=== PATIENT | female | born 1965 | race Hispanic/Latino ===

== ENCOUNTER 2025-07-20 02:15 | Observation (INO) | payer BC ==
[2025-07-20] VITALS (11 sets, daily range): BP systolic 115–139; BP diastolic 57–69; PULSE 52–80; RESP 15–18; TEMP 97.6–98.7; O2SAT 95–100
[~2025-07-20] VITALS: Ht 170.2 cm; Wt 98.0 kg
[2025-07-20 02:40] LABS: BASOPHILS % 0.6 % (0.0-1.0); EOSINOPHILS % 3.0 % (0.0-6.0); LYMPHOCYTES % 33.8 % (18.0-39.1); MONOCYTES % 10.1 % (4.4-11.3); NEUTROPHILS % 52.1 % (38.7-80.0); RED CELL DISTRIBUTION WIDTH 14.6 % (11.7-14.4)
[2025-07-20 02:55] LABS: INR 0.88
[2025-07-20 03:05] LABS: EST GLOMERULAR FILTRATION RATE 80.0 ML/MIN (>=60)
[2025-07-20] MEDS ORDERED: SODIUM CHLORIDE FLUSH 10 ML SYR INJ PRN (03:30)
[2025-07-20] MEDS ORDERED: B COMPLEX1 EACH (04:23)
[2025-07-20] MEDS ORDERED: K2 PLUS D3 TAB1 EACH (04:23)
[2025-07-20] MEDS ORDERED: ASPIRIN81 MG PO (04:23)
[2025-07-20] MEDS ORDERED: PROGESTERONE200 MG (04:23)
[2025-07-20] MEDS: METOPROLOL SUCCINATE 25 MG TAB XL PO SCH (10:24)
[2025-07-20] MEDS: CLOPIDOGREL BISULFATE 75 MG TAB PO ONE (10:24)
[2025-07-20] MEDS: ASPIRIN 81 MG ENTERIC COATED PO SCH (10:24)
[2025-07-20 10:26] LABS: CHOL/HDL RATIO 3.5 (3.0-3.6); LDL CHOLESTEROL 102.0 MG/DL (60-130)
[2025-07-21] VITALS: BP 99/60; PULSE 57; RESP 20; TEMP 98.6; O2SAT 99
[2025-07-21 04:00] VITALS: BP 116/66; PULSE 56; RESP 18; TEMP 98.6; O2SAT 98
[2025-07-21 05:57] LABS: CHOL/HDL RATIO 3.7 (3.0-3.6); LDL CHOLESTEROL 101.0 MG/DL (60-130)
[2025-07-21 08:00] VITALS: BP 115/58; PULSE 56; RESP 16; TEMP 98.5; O2SAT 96
[2025-07-21] MEDS: CLOPIDOGREL BISULFATE 75 MG TAB PO SCH (08:22)
[2025-07-21 09:00] VITALS: BP 115/58; PULSE 56; RESP 16; TEMP 98.5; O2SAT 96
[2025-07-21 11:40] VITALS: BP 108/60; PULSE 54; RESP 16; TEMP 98.5; O2SAT 98
[2025-07-21] MEDS ORDERED: TOPROL XL25 MG PO (12:33)
[2025-07-21] MEDS ORDERED: ASPIRIN EC81 MG PO (12:33)
[2025-07-21] MEDS ORDERED: PLAVIX75 MG PO (12:33)
== END 2025-07-21 15:32 | disposition home or self-care (01) ==
LOC: ER 02:20 → ERHOLD 03:17 → MED/SURG 04:04
PROVIDERS: ADMIT Internal Medicine; ATTEND Internal Medicine
DX: I49.3 Ventricular premature depolarization (principal); R00.8 Other abnormalities of heart beat; R06.00 Dyspnea, unspecified; R07.89 Other chest pain; E66.01 Morbid (severe) obesity due to excess calories; Z68.33 Body mass index [BMI] 33.0-33.9, adult; M17.0 Bilateral primary osteoarthritis of knee; M54.9 Dorsalgia, unspecified; R73.03 Prediabetes
CPT/HCPCS: 36415 ×2; 71045; 80053; 80061 ×2; 82550; 84443; 84484; 85025; 85610; 85730; 93005; 93306; 94799; 99284; G0378 ×2